=== PATIENT | female | born 1945 | race Caucasian/White ===

== ENCOUNTER → 2020-01-05 12:47 | Outpatient (CLI) | payer MEDICARE, SELFPAY ==
--- NOTE | 2020-01-05 12:53 | CT_ITS ---
CT of the left lower extremity without contrast INDICATION: Varus deformity, joseph protocol. TECHNIQUE: Multiple thin section axial CT images of the left lower extremity through the hip, knee, and ankle joints were obtained and filmed in bone windows. Furthermore, multiple sagittal and coronal reconstructions were performed. FINDINGS: No abnormal soft tissue mass, lymphadenopathy, fluid collection. No acute fracture or dislocation. No lytic or blastic lesions. Mild left hip arthrosis. Moderate knee arthrosis. No ankle arthrosis. IMPRESSION: Moderate left knee arthrosis per Electronically Signed: Mayito Rivera MD at 13:41 EDT Tel , Service support , CT/Extremity Lower without Contra
== END ==
PROVIDERS: Referring Provider Specialist; Visit Provider Specialist
DX: M21.162 Varus deformity, not elsewhere classified, left knee (principal)
CPT/HCPCS: 73700

== ENCOUNTER → 2020-01-15 10:01 | Outpatient (CLI) | payer MEDICARE, SELFPAY | PROVIDERS: Referring Provider Specialist; Visit Provider Specialist | DX: R94.8 Abnormal results of function studies of other organs and systems (principal) | CPT/HCPCS: 73700 ==

== ENCOUNTER 2020-01-28 05:12 | Day surgery (SDC) | payer MEDICARE, SELFPAY ==
--- NOTE | 2020-01-06 17:44 | PCM.HP.BLA ---
History and Physical History and Physical Patient Name: Mayra Cam : 1945 From: ULISES LEDEZMA NP DATE OF SURGERY: 01/28/2020 SCHEDULED PROCEDURE: Minimally invasive robotic-assisted left unicompartmental knee arthroplasty versus total knee arthroplasty HISTORY OF PRESENT ILLNESS: Preoperative history and physical exam was performed on January 05, 2020. This is a 74-year-old female who has been experiencing left knee pain for over 6 months. She describes the pain as intermittent, dull, aching, sharp, stabbing and sore. The pain is made worse with stairs, driving, sitting for prolonged periods of time, walking and standing. The patient does report start up pain. The pain does wake her at night. The pain is located over the medial joint line. The patient does report inability to perform activities of daily living including dressing and leisure activities such as working outside. Previous treatments include rest, ice, heat, elevation, home exercises and oral medications including nonsteroidal anti-inflammatories and extra strength Tylenol. The patient does have a medical history pertinent for hypertension and type 2 diabetes. Surgical clearance will be obtained from Dr. Cole her primary care provider. The patient denies fevers, chills, shortness of breath, difficulty breathing or recent infections. After failing conservative measures and discussing treatment options with Dr. Johny Olson the patient does wish to proceed with a minimally invasive robotic-assisted left unicompartmental knee arthroplasty versus total knee arthroplasty. REVIEW OF SYSTEMS: ROS: Const: Reports anxiety and vision problems, but denies anorexia, change in appetite, fever, hard of hearing and weight change. CV: Denies chest pain, heart murmur, irregular heartbeat and peripheral vascular disease. Resp: Reports cough, but denies asthma, pneumonia, sleep apnea, SOB, tuberculosis and wheezing. GI: Denies constipation, diarrhea, difficulty swallowing, heartburn, nausea, bloody stools and vomiting. : Urinary: denies incontinence. Musculo: Denies leg swelling, limp and weakness. Skin: Denies Raynaud's, history of shingles and tattoo. Neuro: Denies ambulatory dysfunction, dizziness, numbness/tingling and tremor. Psych: Reports anxiety and stress, but denies depression, insomnia and mental illness. Saeid/Lymph: Denies anemia, bleeding/bruising tendency and past transfusion. Reviewed, no changes. PAST MEDICAL HISTORY: Advance Care Plan: Other Directive, LIVING WILL Effective Date: 01/06/2019 PMH: Medical Problems: High Blood Pressure Diabetes - II Hypercholesterolemia Accidents: None Surgical Hx: [facility] Hysterectomy - PARTIAL W/BLADDER SUSPENSION Hip Replacement RT - (09/19/2016) [facility] Cataracts Surgery - (08/2019) 14TH- RT EYE 28TH- LT EYE Anesthesia Complications: None Assistive Devices: Glasses Reviewed and updated. SOCIAL HISTORY: SH: Marital: .Occupation: Nurse.Work Status: Retired.Hand Dominance: Right-Handed. Personal Habits: Cigarette Use: Never.Alcohol: Denies use.Drug Use: Denies Use.Enjoy Exercising: Exercises 1-3 X/Week. Reviewed and updated. VITALS: Ht: 61 Wt: 191lb Wt k.638 BMI: 36.1 BP: 108/56 Pulse: 87 Resp: 20 T: 98.0 T: 36.7C ALLERGIES: Amoxicillin MEDICATIONS: Oxycodone HCL 5 mg 1-2 tab by mouth every 4 hours, Meloxicam 7.5 mg 1 by mouth twice a day, Promethazine HCL 12.5 mg 1-2 tablets by mouth every 6 hours, Famotidine 20 mg 1 by mouth every day, Lisinopril/Hydrochlorothiazide 20-12.5 1po qday, Atorvastatin Calcium 10 mg 1 by mouth every day, Metformin HCL 500 mg 1 by mouth every day, Aspirin 81 mg 1 by mouth every day, Paroxetine HCL 20 mg 1/2 po qd, Vitamin D3 25 mcg (1000 Ut) 1 po qd PRE-OP EXAM: General appearance:NORMAL Other: Eyes: Conjunctivae and lids: NORMAL Pupils: ERR Ears, Nose, Mouth, and Throat: NORMAL Other: Inspection of lips, teeth and gums: NORMAL Other: Respiratory: Assessment of respiratory effort: NORMAL Other: Auscultation of lungs: clear to auscultation no wheezes, rhonchi or rales. Cardiovascular: Auscultation of heart: regular rate and rhythm, no murmurs, gallops or rubs. Gastrointestinal: Exam of abdomen: soft, nontender, nondistended bowel sounds present. Neurological: see below Psychiatric: Orientation to time, place and person: NORMAL Other: Mood and affect: NORMAL Other: PHYSICAL EXAMINATION: Patient ambulates with an antalgic gait. There is fullness in the posterior knee. Medial joint line pain and tenderness with palpation. Correctable varus alignment. Stable to varus and valgus stress testing. Range of motion: Lacks 3 of extension to 121 flexion. Knee strength 4+/5 with extension. Sensation intact to saphenous, sural, deep and superficial peroneal and tibial nerve distributions. IMAGING STUDIES: 4 views of left knee including sunrise and lateral and bilateral weight-bearing AP and tunnel views obtained on December 15, 2019 reveals the left knee with varus alignment and medial joint space narrowing, subchondral sclerosis and osteophyte formation consistent with severe medial compartment stage IV osteoarthritis. IMPRESSION: 1. Osteoarthritis, left knee 2. Type 2 diabetes mellitus 3. Hypertension 4. Hypercholesterolemia PLAN: Dr. Johny Olson did discuss and review with the patient all treatment options including surgical versus nonsurgical. The patient does wish to proceed with the above-stated procedure. Potential risk, benefits and complications of the procedure were discussed in detail including but not limited to , infection, nerve and blood vessel damage, persistent pain, numbness, tingling, paresthesia, blood clot, pulmonary embolism and requirement for possible further surgery. The patient expressed full understanding and has no further questions for the doctor. The patient does agree to proceed with the above-stated procedure and has signed the surgery consent form. The patient was given prescriptions for the following medications at her preoperative visit: Famotidine, meloxicam, oxycodone and promethazine. She was also instructed to pick up and delivery driver [id number] aspirin, extra strength Tylenol and senna. She will bring a walker to the hospital the day of surgery. Discussed with the patient the risks associated with the COVID-19 virus including the risk of exposure while at the hospital. The patient was reassured local hospitals have low infection rates and taken all necessary precautions to limit patient exposure to COVID-19. Limiting the patient's time in the hospital may decrease their exposure to COVID-19. The patient was notified that we will need to comply with any screening or testing the hospital wishes to perform and that surgery may be delayed for any positive test results. I have reviewed the [place] Automated Rx Reporting System (OARRS) report for this patient for refill pattern and other prescriber involvement as part of the appropriate surveillance for the provision of acute and chronic controlled medications. The report was requested and reviewed on the date of this entry and was considered in the prescribing process. This dictation was created using voice recognition software. Phonetic and/or grammatical errors may exist. ___ I have re-examined the patient. There are no clinical changes since date of exam. ___ See progress notes for changes. ___ Dictated on admission Date: Time: Signature:
--- NOTE | 2020-01-07 10:21 | EKG12_ITS ---
Test Reason : PRE OP Blood Pressure : / mmHG Vent. Rate : 067 BPM Atrial Rate : 067 BPM P-R Int : 144 ms QRS Dur : 092 ms QT Int : 388 ms P-R-T Axes : -10 -23 -14 degrees QTc Int : 409 ms Normal sinus rhythm Low voltage QRS Inferior infarct , age undetermined Abnormal ECG Confirmed by TATI BRAVO ([id number]), acquisition editor SAHRA DRAKE ([id number]) on 01/08/2020 11:36:43 AM Referred By: Johny Olson Confirmed By:TATI BRAVO
[2020-01-07 10:28] LABS: Absolute Lymphocyte Count 1.74 X10^3/uL (0.83-4.51); Absolute Neutrophil Count 2.5 X10^3/uL (2.0-7.7); Basophil# 0.03 X10^3/uL; Basophil% 0.6 % (0-1); Eosinophils% 2.1 % (0-5); Hematocrit 39.4 % (37-47); Hemoglobin 13.2 g/dL (12.0-15.0); Lymphocyte # 1.74 X10^3/ul (4.0); Lymphocyte % 36.6 % (19-41); Mean Corp Hgb Conc 33.5 g/dL (32-36); Mean Corpuscular Hgb 29.5 pg (27.0-32.0); Mean Corpuscular Volume 88.1 fL (81-99); Mean Platelet Vol. 10.8 fl (6.2-12.0); Monocyte# 0.38 X10^3/uL; NRBC Flagged by Analyzer 0 % (0-5); Neutrophil # 2.49 X10^3/uL (2.7-7.7); Neutrophil % 52.5 % (47-70); Platelet Count 226 K/mm3 (150-450); RBC Distribution Width CV 13.1 % (11.6-14.6); RBC Distribution Width SD 41.2 fl (35.1-43.9); Red Blood Count 4.47 M/mm3 (4.2-5.4); White Blood Count 4.8 K/mm3 (4.4-11.0)
[2020-01-07 11:02] LABS: Hemoglobin A1c 6.2 % (3.8-5.6)
[2020-01-07 11:07] LABS: Anion Gap 4 (5-15); BUN 21 mg/dL (7-18); BUN/Creat Ratio 25.7 RATIO (10-20); Calcium,Total 8.9 mg/dL (8.5-10.1); Chloride 109 mmol/L (98-107); Creatinine, Serum 0.82 mg/dL (0.55-1.02); EST Glomerular Filtration Rate 72 mL/min (>60); Est Glom Filt Rate - Afr Amer 87 mL/min (>60); Glucose 117 mg/dL (74-106); Sodium Level 139 mmol/L (136-145)
[2020-01-28] VITALS (10 sets, daily range): BP systolic 103–134; BP diastolic 56–75; PULSE 82–98; RESP 16–18; TEMP 36–37.1; O2SAT 93–100; BMI 35.9
[2020-01-28] MEDS: Lactated Ringers 1,000 ML 999 ML IV ×2 (05:59→09:00)
[2020-01-28] MEDS: Acetaminophen 500 MG Tablet 1000 MG PO ×2 (06:00→14:05)
[2020-01-28] MEDS: Gabapentin 600 MG Tablet PO (06:01)
[2020-01-28] MEDS: Celecoxib 200 MG Capsule 400 MG PO (06:51)
[2020-01-28 06:55] LABS: Bedside Glucose 206 mg/dL (70-110)
[2020-01-28 07:12] LABS: Magnesium 1.9 mg/dL (1.6-2.6)
[2020-01-28] MEDS: Lactated Ringers 1,000 ML 75 ML IV (07:30)
[2020-01-28] MEDS: Cefazolin 2 GM in 0.9% Normal Saline 100 ML IV (07:37)
[2020-01-28] MEDS: dexAMETHasone 10 MG/ML Vial IV (08:41)
--- NOTE | 2020-01-28 09:01 | PCM.OPRPT ---
Report of Operation Date of Procedure: 01/28/20 Pre-Operative Diagnosis: Left knee anteromedial primary osteoarthritis Post-Operative Diagnosis: Left knee anteromedial primary osteoarthritis Surgery/Procedure Performed:: Left unicompartmental robotic assisted minimally invasive medial compartment knee replacement Description of Surgical Findings:: Stable knee with good patella tracking. Alignment corrected. Lateral compartment is appropriate. slip box changer: Bre Serrano Type of Anesthesia:: Spinal Anesthesiologist: Harry Miranda Special Medications: 2 g Ancef, 1 g TXA at incision, 1 g TXA closure, 10 mg Decadron, joint cocktail (5 mg Duramorph, 30 mL of 0.5% Ropivicaine, 1000 units of epinephrine, 30 mg of Toradol) Specimen's removed: Bony cuts Estimated Blood Loss (mL): 50 mL Fluids Replaced: 1200 mL crystalloid Description of Procedure: Implants used: 1. Elan size 4 femur 2. Elan size 4 tibia 3. Elan 9 mm polyethylene component Brief history operative indications: 74-year-old F with history of L knee anterior medial varus osteoarthritis with radiographic findings with loss of joint space, osteophyte formation and subchondral sclerosis. Failed conservative measures as mentioned in the H&P. Discussion of total knee arthroplasty as well as risk and benefits were discussed the patient including but not limited to blood loss, DVTs, PEs, neurovascular damage, general risk of anesthesia including loss of life, and stiffness or instability were discussed with patient. Patient demonstrated understanding and was able to sign informed consent. Procedure: On the date of procedure patient's L lower extremity was marked in the preoperative area. The patient was then taken back to the operating room where the patient was placed on the table in the supine position. All bony prominences were identified a well-padded. Anesthesia assumed control of the C-spine and airway and remained controlled throughout the remainder of the procedure. A tourniquet was placed on the L upper thigh and the leg was prepped in a sterile fashion. The surgeon then scrubbed at this time .Upon reentering the room L lower extremity was draped in a standard orthopedic fashion. A timeout was then called and everyone agreed upon the side, the site, the procedure to be performed, patient's identity and antibiotics given. Esmarch bandage was used to exsanguinate the extremity and the tourniquet was placed up to 250 mmHg with the knee in flexion. A midline skin incision was made and sharp dissection was taken down through skin subcutaneous tissue and fat. The standard medial parapatellar incision was made and the patella was subluxed medially. The standard minimal MCL release was done and a minimal fat pad for visualization. At this time we directed our attention towards the placement of the robotic navigation pins. 2 pins were placed in the tibia handbreadth below the tibial tubercle and 2 pins were placed in the femur with the patella in the trochlear groove 1 handbreadth above the patella. Bicortical fixation was obtained on all 4 pins. Once these pins were placed the arrays and checkpoints were placed and the femur and tibia were registered. After registering the bony landmarks bone spurs were removed and the soft tissues were tensioned and this intraoperative information was used to make intraoperative adjustments to implant position and balance the knee. The robotic arm was brought in and our attention was then directed towards the femur at this time based on our preoperative and intraoperative planning the size 4 femoral component was burred appropriately to the distal femur. Once we had appropriately burred the distal femur the pegs and he will were also burred. Next our attention was directed to the tibia. Where using our preoperative plan we buried the proximal tibia for a size 4 tibial component and then appropriately burred the pegs. Once we had burred the femur and the tibia all excess osteophytes were again removed. The trial components were placed in the tibial trial component was used to press the posterior keel. The knee was taken through range of motion and balancing was verified using the robotic navigation. Once we were happy with our components trial components were removed and the bone was repaired reaming the distal femur and using the toothbrush saw to slot the proximal tibia. Once the bone was adequately prepared the knee was scoped. Out normal saline and 40 mL of joint cocktail was injected in the posterior medial knee. The bone ends were appropriately dried and once the cement was ready the final components were cemented into place with the trial polyethylene and held at 20? flexion. Once the cement had adequately cured and all cement was removed and the final 9 millimeter polyethylene was put into place and the final knee showed is good patella tracking and well-balanced knee without overcorrection. It should be noted that throughout the procedure the MCL was protected during all bony cuts by my assistant professor of english. Once the final components were placed a the wound was copiously irrigated with 500 mL dilute Betadine solution followed by 1 L of normal saline solution and the periarticular injection was given. The wound was closed in a layer [place]ledo fashion using #1 vicryl interrupted sutures for the arthrotomy, 2-0 interrupted Vicryl suture for the subcuticular layer and barbara for final skin closure. A sterile compressive dressing was then placed. The patient was then awakened from anesthesia, transferred to the [facility] and transferred to the PACU for recovery. Post op plan DVT ppx: ASA 81mg BID for six weeks, thigh high compression stockings for 2 weeks Follow up: in office in 2 weeks for wound check PT: to start POD #0 at hospital, outpatient PT should be arranged. - Complications No intraoperative complications - Admit VTE Documentation VTE Present on Admission: No VTE Mechan Device Prophylaxis: SCD's, Thigh High ARINA Hose VTE Pharm Prophylaxis ordered?: Yes
--- NOTE | 2020-01-28 09:50 | RAD_ITS ---
STUDY: X-RAY - LEFT KNEE REASON FOR EXAM: Female, 74 years old. LEFT KNEE POST OP PORTABLE TECHNIQUE: 2 view(s) of the knee. COMPARISON: None. FINDINGS: Patient is status post replacement of the medial compartment of the left knee joint. The components demonstrate anatomic alignment with no postoperative complications noted. Normal postoperative soft tissue swelling and subcutaneous emphysema noted. Preservation of the lateral compartment of the left knee joint maintained, there is moderate patellofemoral joint space narrowing. RAD/Knee 1 or 2 Views IMPRESSION: Status post replacement of the medial compartment of the left knee joint. Components demonstrate anatomic alignment. No plain film evidence of postoperative complication Electronically Signed: Guanaco Ambrocio MD at 10:09 EDT , Service support ,
[2020-01-28 09:55] LABS: Bedside Glucose 115 mg/dL (70-110)
[2020-01-28] MEDS: Lactated Ringers 1,000 ML 125 ML IV (10:18)
--- NOTE | 2020-01-28 11:32 | SUR.PHASEII ---
O2 off as ordered.
[2020-01-28] MEDS: Cefazolin 1 GM/50 ML BAG IV (13:52)
== END 2020-01-28 14:45 | disposition home or self-care (01) ==
LOC: SDC 05:13 → AC 05:14
PROVIDERS: Anesthesiology; Referring Provider Specialist; Visit Provider Specialist
PROC: (CPT 27446; principal; 2020-01-28 07:00)
DX: M17.12 Unilateral primary osteoarthritis, left knee (principal); E11.9 Type 2 diabetes mellitus without complications; I10 Essential (primary) hypertension; E78.00 Pure hypercholesterolemia, unspecified; Z79.1 Long term (current) use of non-steroidal anti-inflammatories (NSAID); Z79.82 Long term (current) use of aspirin; Z79.899 Other long term (current) drug therapy; Z88.0 Allergy status to penicillin
CPT/HCPCS: 01400; 27446; 64447; S2900; 36415; 73560; 80048; 82962; 83036; 83735; 85025; 87081; 87635; 93005; 97162; 97166; C1776; G2023; J7120; J2405; U0003

== ENCOUNTER → 2021-03-29 07:32 | Outpatient (CLI) | payer MEDICARE, SELFPAY ==
--- NOTE | 2021-03-29 07:35 | CT_ITS ---
STUDY: CT SCAN LOWER EXTREMITY RIGHT REASON FOR EXAM: Female, 75 years old. Varus deformity RADIATION DOSAGE (If Supplied By Facility): CTDIvol = ( 18.58 ) mGy, DLP = ( 1121.04 ) mGycm. Individualized dose optimization techniques were used for this CT.? TECHNIQUE: Multiple axial tomographic images were obtained without intravenous contrast administration. Coronal and sagittal reconstruction were obtained as well. COMPARISON: None. FINDINGS: Imaging of the right hip joint was obtained. Patient status post total hip replacement. There is good alignment. No abnormality is seen. Imaging of the knee joint was obtained. These are marked in degree of joint space narrowing of the medial compartment of the knee joint with degenerative spur formation of the medial femoral condyle and medial tibial plateau. Mild degenerative changes of the patellofemoral joint. Tiny joint effusion. Imaging of the ankle joint was obtained. There is evidence of an old avulsion fracture of the medial malleolus as well as the lateral malleolus. Calcaneal spurs. CT/Extremity Lower without Contra IMPRESSION: Marked degree of bone joint space narrowing of the medial compartment of the knee joint as well as mild degree of patellofemoral osteoarthritis. Electronically Signed: Jacoby Garibay MD at 9:32 EDT , Service support ,
== END ==
PROVIDERS: Referring Provider Specialist; Visit Provider Specialist
DX: M21.161 Varus deformity, not elsewhere classified, right knee (principal); M17.11 Unilateral primary osteoarthritis, right knee
CPT/HCPCS: 73700

== ENCOUNTER → 2021-03-30 08:45 | Outpatient (CLI) | payer MEDICARE, SELFPAY ==
--- NOTE | 2021-03-30 08:49 | EKG12_ITS ---
Test Reason : PREOP Blood Pressure : / mmHG Vent. Rate : 083 BPM Atrial Rate : 083 BPM P-R Int : 156 ms QRS Dur : 082 ms QT Int : 374 ms P-R-T Axes : 038 -26 -04 degrees QTc Int : 439 ms Normal sinus rhythm Inferior infarct , age undetermined Anterolateral infarct , age undetermined Abnormal ECG Confirmed by JACK JOHNSON, GLORY ([id number]), manager editorial SAHRA DRAKE ([id number]) on 04/01/2021 9:48:06 AM Referred By: Shu Peck Confirmed By:GLORY SANTIAGO MD
--- NOTE | 2021-03-30 09:00 | RAD_ITS ---
STUDY: X-RAY CHEST REASON FOR EXAM: Female, 75 years old. PRE OP TECHNIQUE: PA and lateral views of the chest. COMPARISON: None. FINDINGS: Hyperinflated There is no demonstrated pleural abnormality. Normal size heart. Normal mediastinum and rebeca. Normal visualized pulmonary arteries. There is atherosclerotic calcification of the aortic arch with tortuosity. There are diffuse degenerative changes of the visualized thoracic spine. There is degenerative osteoarthritis of the bilateral shoulders. There is no demonstrated abnormality of the visualized soft tissue structures of the upper abdomen. RAD/Chest PA and Lateral IMPRESSION: Hyperinflation. Scattered calcified granulomas. Electronically Signed: Jcaoby Garibay MD at 15:44 EDT , Service support ,
[2021-03-30 10:27] LABS: Absolute Lymphocyte Count 1.93 X10^3/uL (0.83-4.51); Absolute Neutrophil Count 1.3 X10^3/uL (2.0-7.7); Basophil# 0.03 X10^3/uL; Basophil% 0.8 % (0-1); Eosinophil# 0.15 X10^3/uL; Eosinophils% 3.9 % (0-5); Hematocrit 38.4 % (37-47); Hemoglobin 12.7 g/dL (12.0-15.0); Lymphocyte # 1.93 X10^3/ul (0.83-4.51); Lymphocyte % 50.5 % (19-41); Mean Corp Hgb Conc 33.1 g/dL (32-36); Mean Corpuscular Hgb 28.5 pg (27.0-32.0); Mean Corpuscular Volume 86.3 fL (81-99); Monocyte# 0.39 X10^3/uL; Monocyte% 10.2 % (0-10); NRBC Flagged by Analyzer 0 % (0-5); Neutrophil # 1.32 X10^3/uL (2.7-7.7); Neutrophil % 34.6 % (47-70); Platelet Count 200 K/mm3 (150-450); RBC Distribution Width CV 12.5 % (11.6-14.6); RBC Distribution Width SD 39.8 fl (35.1-43.9); Red Blood Count 4.45 M/mm3 (4.2-5.4); White Blood Count 3.8 K/mm3 (4.4-11.0)
[2021-03-30 10:56] LABS: Anion Gap 5 (5-15); BUN 14 mg/dL (7-18); BUN/Creat Ratio 17.8 RATIO (10-20); Calcium,Total 9.6 mg/dL (8.5-10.1); Chloride 105 mmol/L (98-107); Creatinine, Serum 0.78 mg/dL (0.55-1.02); EST Glomerular Filtration Rate 75 mL/min (>60); Est Glom Filt Rate - Afr Amer 91 mL/min (>60); Glucose 115 mg/dL (74-106); Potassium 3.9 mmol/L (3.5-5.1); Sodium Level 137 mmol/L (136-145)
[2021-03-30 10:57] LABS: Hemoglobin A1c 6.5 % (3.8-5.6)
== END ==
PROVIDERS: PCP Family Medicine; Referring Provider Physician Assistant Surgical; Visit Provider Physician Assistant Surgical
DX: Z01.818 Encounter for other preprocedural examination (principal); Z01.810 Encounter for preprocedural cardiovascular examination; E11.9 Type 2 diabetes mellitus without complications
CPT/HCPCS: 36415; 71046; 80048; 83036; 85025; 93005

== ENCOUNTER → 2021-04-07 10:29 | Outpatient (CLI) | payer MEDICARE, SELFPAY ==
[2021-04-07 11:52] LABS: Albumin, Serum 3.9 g/dL (3.2-5.0)
== END ==
PROVIDERS: PCP Family Medicine; Referring Provider Specialist; Visit Provider Specialist
DX: Z01.812 Encounter for preprocedural laboratory examination (principal)
CPT/HCPCS: 36415; 82040